=== PATIENT | male | born 1965 | race Caucasian/White ===

== ENCOUNTER 2020-07-17 07:04 | Emergency (ER) | payer MEDICAID ==
[~2020-07-17] VITALS: Ht 172.7 cm; Wt 108.9 kg
[~2020-07-17 07:04] MED LIST: BUM1 PO; CLEOCIN HCL300 MG PO; COR3 PO; COUMADIN2.5 MG PO; ECO81 PO; ELIQUIS5 MG PO; L40 PO; L40I IV; L40I PO; LASIX40 MG PO; LEVAQUIN500 M1 PO; LIPI10 PO; ZES5 PO
[2020-07-17 07:08] VITALS: Ht 172.7 cm; Wt 108.9 kg
[2020-07-17 08:36] LABS: BASOPHIL % 0.4 % (0-2); PLATELET COUNT 209 x10^3mcL (130-400); RED CELL DISTRIBUTION WIDTH 16.3 % (11.5-14.5)
[2020-07-17 08:38] LABS: CALCIUM 8.9 mg/dL (8.5-10.1); CARBON DIOXIDE 28.6 mmol/L (21-32); CHLORIDE SERUM 103 mmol/L (98-107); GFR1 > 60 mL/min; GLUCOSE SERUM 129 mg/dL (74-106); POTASSIUM SERUM 3.5 mmol/L (3.5-5.1); SODIUM SERUM 139 mmol/L (136-145)
[2020-07-17 08:42] LABS: ALKALINE PHOSPHATASE 121 U/L (46-116); ALT/SGPT 33 U/L (16-63); AST/SGOT 32 U/L (15-37); BILIRUBIN TOTAL 1.64 mg/dL (0.20-1.00); LIPASE 109 IU/L (73-393); TRIGLYCERIDES 56 mg/dL (<150)
[2020-07-17 08:48] LABS: ALBUMIN 3.2 g/dL (3.4-5.0); CHOLESTEROL 87 mg/dL (<200); CHOLESTEROL/HDL RATIO 3.5; HDL CHOLESTEROL 25 mg/dL (40-60)
[2020-07-17 09:33] LABS: T3 TOTAL 1.51 ng/mL
[2020-07-17 11:07] LABS: FREE THYROXINE INDEX 4.3 ug/dL (1.4-4.5); T4(THYROXINE) 11.4 ug/dL (4.7-13.3)
[2020-07-17 11:26] LABS: FREE T4 2.17 ng/dL (0.76-1.46)
[2020-07-17 12:06] VITALS: BP 114/87
== END 2020-07-17 12:06 | disposition home or self-care (01) ==
LOC: ED 07:04
PROVIDERS: Specialist
DX: S01.01XA Laceration without foreign body of scalp, initial encounter (principal); U07.1 COVID-19; J90 Pleural effusion, not elsewhere classified; I50.9 Heart failure, unspecified; F17.210 Nicotine dependence, cigarettes, uncomplicated; F15.90 Other stimulant use, unspecified, uncomplicated; F12.90 Cannabis use, unspecified, uncomplicated; W19.XXXA Unspecified fall, initial encounter; Y93.89 Activity, other specified; Y99.8 Other external cause status; Y92.89 Other specified places as the place of occurrence of the external cause
CPT/HCPCS: 83880; 84439; 90715; G0480; J0456; J0696; J7050; Q0092

== ENCOUNTER 2020-07-24 05:58 | Emergency (ER) | payer MEDICAID ==
[~2020-07-24] VITALS: Ht 175.3 cm; Wt 107.3 kg
[2020-07-24 08:05] VITALS: BP 138/70
== END 2020-07-24 08:05 | disposition home or self-care (01) ==
LOC: ED 05:58
DX: S01.91XD Laceration without foreign body of unspecified part of head, subsequent encounter (principal); I50.9 Heart failure, unspecified; F17.210 Nicotine dependence, cigarettes, uncomplicated; G44.209 Tension-type headache, unspecified, not intractable; Z76.0 Encounter for issue of repeat prescription; X58.XXXD Exposure to other specified factors, subsequent encounter
CPT/HCPCS: Q0092

== ENCOUNTER 2020-10-05 03:14 | Inpatient (IN) | payer MEDICAID, SELFPAY ==
[~2020-10-05] VITALS: Ht 177.8 cm; Wt 109.8 kg
[2020-10-05 03:16] VITALS: Ht 177.8 cm; Wt 109.8 kg
--- NOTE | 2020-10-05 04:38 | NUR ---
PATIENT WHEELED TO ROOM BY EMT YENNY AND BRANDT LUNSFORD.
--- NOTE | 2020-10-05 04:46 | NUR ---
PT PRESENTS TO ED WITH C/C OF COUGH AND WEAKNESS X4 DAYS. PT REPORTS FEVERS, REPORTS FEELING "BAD ALL OVER MY BODY". PT REPORTS NAUSEA "WHENEVER I DO ANY ACTIVITY." PT NOTED TO HAVE DRY, NON-PRODUCTIVE COUGH DURING ASSESSMENT. PT REPORTS HX OF CHF, JVD NOTED TO R SIDE OF NECK. PT DENIES ANY VOMITTING, DENIES DIARRHEA AND CONSTIPATION. PT DENIES ANY OTHER RELATED OR ABNORMAL SYMPTOMS. PT PLACED IN GOWN, ON FULL SCIENCE MANAGER AND PULSE OX, CALL LIGHT IN REACH. AWAITING MSE.
--- NOTE | 2020-10-05 05:23 | NUR ---
PT REPORTS HE WAS COVID + ON OCT .
[2020-10-05 05:31] LABS: PLATELET COUNT 254 x10^3mcL (130-400)
[2020-10-05 05:34] LABS: RED CELL DISTRIBUTION WIDTH 17.3 % (11.5-14.5)
[2020-10-05 05:42] LABS: CALCIUM 8.6 mg/dL (8.5-10.1); CARBON DIOXIDE 24.7 mmol/L (21-32); CHLORIDE SERUM 104 mmol/L (98-107); GFR1 > 60 mL/min; GLUCOSE SERUM 128 mg/dL (74-106); POTASSIUM SERUM 3.8 mmol/L (3.5-5.1); SODIUM SERUM 136 mmol/L (136-145)
[2020-10-05 05:47] LABS: ALKALINE PHOSPHATASE 109 U/L (46-116); ALT/SGPT 34 U/L (16-63); AST/SGOT 26 U/L (15-37); BILIRUBIN TOTAL 0.92 mg/dL (0.20-1.00); TOTAL PROTEIN, SERUM 6.8 g/dL (6.4-8.2)
[2020-10-05 05:48] LABS: ALBUMIN 3.2 g/dL (3.4-5.0)
--- NOTE | 2020-10-05 06:01 | NUR ---
PT RESTING IN [facility], EKG COMPLETED BY EMT YENNY, CALL LIGHT IN REACH. PT AA&OX4.
[2020-10-05 06:12] LABS: BAND NEUTROPHIL 3 % (0-10); MONOCYTE 10 % (0-7); SEGMENTED NEUTROPHILS 70 % (37-75); rbc morphology (normal/abnorm) NORMAL (NORMAL)
--- NOTE | 2020-10-05 06:38 | NUR ---
PT RESTING IN [facility]URNEY, PROVIDED WITH WARM BLANKET, SPEAKING IN FULL CLEAR SENTENCES, AA&OX4, RESP E/U, NAD NOTED AT THIS TIME. CALL LIGHT IN REACH.
--- NOTE | 2020-10-05 07:24 | NUR ---
REPORT GIVEN TO KISHA LUNSFORD TO ASSUME CARE OF PT.
--- NOTE | 2020-10-05 07:45 | NUR ---
PT OOB AMBULATORY TO BATHROOM PER PTS REQUEST. PT IN NO DISTRESS
--- NOTE | 2020-10-05 08:09 | NUR ---
PT MEDICATED WITH LASIX PER MD ORDERS SEE EMAR. PT SITTING AT EDGE OF BED PER PTS REQUEST THIS IS MOST COMFORTABLE.
--- NOTE | 2020-10-05 09:00 | NUR ---
PT IN BED NO DISTRESS NO FURTHER ORDERS AT THIS TIME. AWAITING BED FOR ADMIT
[2020-10-05 09:26] LABS: CALCIUM 8.7 mg/dL (8.5-10.1); CARBON DIOXIDE 24.7 mmol/L (21-32); CHLORIDE SERUM 103 mmol/L (98-107); GFR1 > 60 mL/min; GLUCOSE SERUM 170 mg/dL (74-106); POTASSIUM SERUM 3.6 mmol/L (3.5-5.1); SODIUM SERUM 138 mmol/L (136-145)
--- NOTE | 2020-10-05 10:04 | NUR ---
PT SLEEPING AROUSABLE, VSS, WILL CONTINUE TO MONITOR
--- NOTE | 2020-10-05 11:09 | NUR ---
PT SLEEPING BUT AROUSABLE ON CALLING ADVISED I WILL MEDICATE HIM WITH PROTONIX,VIT B1 AND FOLIC ACID PER ADMIT ORDERS. PT VERBALIZED UNDERSTANDING AND CONSENTED. PT IN NO DISTRESS ON FULL VSS, IV SITE PATENT FLUSHED WITH 10CC NS WITH NO PROBLEM. WILL CONTINUE TO MONITOR. AWAITING BED AVAILABILITY FOR TELE FLOOR
--- NOTE | 2020-10-05 11:09 | NUR ---
PT MEDICATED PER MD ORDERS SEE EMAR.
--- NOTE | 2020-10-05 12:10 | NUR ---
PT RESTING NO COMPLAINTS ALL NEEDS MET. NO FURTHER ORDERS AT THIS TIME. ON FULL CM NSR VSS WILL CONTINUE TO MONITOR
--- NOTE | 2020-10-05 12:35 | NUR ---
PT SLEEPING LUNCH TRAY PLACED IN ROOM. PT AROUSABLE MADE AWARE. NO FURTHER ORDERS AT THIS TIME. WILL MONITOR.
--- NOTE | 2020-10-05 13:08 | NUR ---
REPORT GIVEN TO ARABELLA LUNSFORD RESUMING CARE OF PT AT THIS TIME
--- NOTE | 2020-10-05 13:18 | NUR ---
REPORT RECEIVED FROM KISHA LUNSFORD
--- NOTE | 2020-10-05 15:20 | NUR ---
PT CHANGED INTO GOWN AND ASSESSED SKIN. PT NOTED WITH BLANCHEABLE REDNESS TO RIGHT BUTTOCK. PT STATES "MY BUTT IS ALWAYS RED SINCE THE SLAPPED MY BUTT WHEN I WAS BORN." PT A&XO4NO ACUTE DISTRES NOTED, CONTINUES TO MAKE JOKES WITH STAFF. NOT OTHER WOUNDS OR ABNORMAL SKIN NOTED AT THIS TIME.
--- NOTE | 2020-10-05 16:13 | NUR ---
REPORT GIVEN TO RENAY. AURELIO ISAAC AND JACKIE LUNSFORD TRANSFERRING PT VIA [facility]
--- NOTE | 2020-10-05 17:12 | NUR ---
REC'D PT FROM ED VIA [facility] ACCOMPANIED BY RN. PT ADM WITH CC OF SOB WITH COUGH AND BLE SWELLING. AAOX4, SPEECH CLEAR, FOLLOWS COMMANDS. TELE 27. DENIES CP, DIZZINESS, OR PALPIATIONS. REPORTS MILD SOB. BREATHING EVEN/UNLABORED ON RA, SPO2 100%. C/O PRODUCTIVE COUGH, UNKNOWN COLOR OF SPUTUM. ABD SOFT/DISTENDED. VOIDING FREELY. GEN WEAKNESS. AMB BY SELF WITH STEADY GAIT. BLE SWELLING 2+. IV TO RFA, SITE WNL. ORIENTED TO DEVICES AND SURROUNDINGS. CALL LIGHT WITHIN REACH, BED AT LOWEST POSITION. WILL CONTINUE TO MONITOR.
[2020-10-05 17:22] VITALS: BP 140/83
--- NOTE | 2020-10-05 17:52 | NUR ---
CALLED [facility] AND NOTIFIED OF A1C 6.6 AND NO AM LABS. REC'D ORDER FOR DM PROTOCOL AND AM LABS.
--- NOTE | 2020-10-05 20:30 | NUR ---
RECEIVED AWAKE, ALERT, ORIENTED X3, BREATH SOUNDS DIMINISHED. ON ROOM AIR WITH O2 SAT 97%. NON PRODUCTIVE COUGH NOTED. BLE REDDENED AND SWOLLEN. TEMP 101.3 TYLENOL 650MG PO GIVEN. PLAN OF CARE NOTED AND IMPLEMENTED, ALL NEEDS ATTENDED, WILL CONTINUE TO MONITOR.
[2020-10-05 20:53] VITALS: BP 131/77
--- NOTE | 2020-10-06 | NUR ---
ASLEEP IN BED, VSS, NO ACUTE DISTRESS NOTED, WILL CONTINUE TO MONITOR.
[2020-10-06 06:06] VITALS: BP 131/77
--- NOTE | 2020-10-06 07:00 | NUR ---
RESTING IN BED, DENIES ANY PAIN, VSS, NO ACUTE DISTRESS NOTED, WILL CONTINUE TO MONITOR.
[2020-10-06 08:04] LABS: CALCIUM 8.3 mg/dL (8.5-10.1); CARBON DIOXIDE 27.2 mmol/L (21-32); CHLORIDE SERUM 104 mmol/L (98-107); CREATININE SERUM 0.8 mg/dL (0.7-1.3); GFR1 > 60 mL/min; GLUCOSE SERUM 114 mg/dL (74-106); MAGNESIUM 1.9 mg/dL (1.8-2.4); PHOSPHOROUS 3.5 mg/dL (2.5-4.9); POTASSIUM SERUM 3.7 mmol/L (3.5-5.1); SODIUM SERUM 138 mmol/L (136-145)
[2020-10-06 08:36] VITALS: BP 111/66
[2020-10-06 09:06] LABS: BASOPHIL % 0.9 % (0-2); PLATELET COUNT 230 x10^3mcL (130-400)
[2020-10-06 09:30] LABS: RED CELL DISTRIBUTION WIDTH 17.1 % (11.5-14.5)
--- NOTE | 2020-10-06 12:29 | NUR ---
ECHOCARDIOGRAM PENDING-COVID +
[2020-10-06 13:15] VITALS: BP 118/75
[2020-10-06 13:33] LABS: rbc morphology (normal/abnorm) NORMAL (NORMAL)
[2020-10-06 17:00] VITALS: BP 123/76
[2020-10-06 22:00] VITALS: BP 129/69
--- NOTE | 2020-10-07 | NUR ---
@000 NO CALLS MADE; SEEN PT NOT IN RESP DISTRESS; RESTING COMFORTABLY; 02 @ 2LPM VIA NC; KEPT CALL LIGHT IN REACH.
--- NOTE | 2020-10-07 03:40 | NUR ---
@0340 PT HAD 12 BEATS OF V-TACH; CHECKED PT VS BP 97/52, HR 20, KY 82, 02 SAT 98%; DENIES CHESTPAIN; NOT IN RESP DISTRESS; NOTIFIED DR. ANDERSEN NO ORDERS GIVEN.
[2020-10-07 04:16] VITALS: BP 97/52
[2020-10-07 07:26] LABS: PLATELET COUNT 204 x10^3mcL (130-400)
[2020-10-07 07:39] LABS: CALCIUM 8.4 mg/dL (8.5-10.1); CARBON DIOXIDE 29.6 mmol/L (21-32); CHLORIDE SERUM 103 mmol/L (98-107); GFR1 > 60 mL/min; GLUCOSE SERUM 114 mg/dL (74-106); SODIUM SERUM 139 mmol/L (136-145)
[2020-10-07 08:13] LABS: RED CELL DISTRIBUTION WIDTH 17.2 % (11.5-14.5)
[2020-10-07 09:10] VITALS: BP 109/72
[2020-10-07 12:27] VITALS: BP 112/64
--- NOTE | 2020-10-07 16:59 | NUR ---
0720 RECEIVED REPORT. PATIENT SLEEPING BUT AROUSABLE. ORIENTED X4. ON ROOM AIR. CALL LIGHT WITHIN REACH ONE TIME DOSE 40MG IV LASIX GIVEN, DAILY DOSE INCREASE.
[2020-10-07 17:24] VITALS: BP 111/57
--- NOTE | 2020-10-07 19:30 | NUR ---
PT. REPORT RECIEVED FROM DAY SHIFT NURSE, PT. RESTING IN BED W/ EYES CLOSED, NO FACIAL DROOP NOTED, RR EVEN AND UNLABORED ON RA, CHEST RISE SYMT, TELE 27 NSR, BED IN LOWEST POSITION, CALL LIGHT WITHIN REACH, SR UPX2, WILL CONT TO MONITOR.
[2020-10-07 21:18] VITALS: BP 106/51
[2020-10-08 05:46] VITALS: BP 101/57
[2020-10-08 07:42] LABS: BASOPHIL % 0.8 % (0-2); PLATELET COUNT 199 x10^3mcL (130-400)
--- NOTE | 2020-10-08 07:43 | NUR ---
RECEIVED AWAKE, ALERT AND ORIENTED. IN NO ACUTE RESP. DISTRESS. VS WNL. NO C/O PAIN OR DISCOMFORT. CALL LIGHT WITHIN REACH. WILL CONTINUE WITH PLAN OF CARE.
[2020-10-08 07:49] LABS: RED CELL DISTRIBUTION WIDTH 16.8 % (11.5-14.5)
[2020-10-08 08:06] LABS: CALCIUM 8.3 mg/dL (8.5-10.1); CARBON DIOXIDE 28.9 mmol/L (21-32); CHLORIDE SERUM 100 mmol/L (98-107); CREATININE SERUM 0.8 mg/dL (0.7-1.3); GFR1 > 60 mL/min; GLUCOSE SERUM 91 mg/dL (74-106); SODIUM SERUM 136 mmol/L (136-145)
[2020-10-08 09:05] VITALS: BP 107/57
[2020-10-08 12:30] VITALS: BP 108/62
--- NOTE | 2020-10-08 15:23 | NUR ---
SITTING AT THE EGDE OF THE BED IN NO ACUTE DISTRESS. ON RA SATS 96%. NO SOB NOTED. NO C/O PAIN OR DISCOMFORT AT THIS TIME. NEW HL INSERTED TO LT HAND AND PATENT.
[2020-10-08 17:06] VITALS: BP 107/65
--- NOTE | 2020-10-08 19:00 | NUR ---
REMAINS ON RA AND O2 SATS 95%. NO SOB NOTED. NO ACUTE RESP. DISTRESS. VS WNL. NEW HL TO RT HAND PATENT. NO C/O PAIN OR DISCOMFORT AT THIS TIME. CALL LIGHT WITHIN REACH.
[2020-10-08 21:00] VITALS: BP 105/59
--- NOTE | 2020-10-08 23:13 | NUR ---
NO DISTRESS NOTED, SITTING UP ON BED EATING SNACKS. NO C/O PAIN OR DISCOMFORT.
--- NOTE | 2020-10-09 00:22 | NUR ---
SLEEPING AT THIS TIME. EU BREATHINGN NOTED ON ROOM AIR. NSR ON TELE. ISOLATION PRECAUTION IN PLACE.
--- NOTE | 2020-10-09 02:10 | NUR ---
RECEIVED PATIENT FROM NURSE MARTINEZ. PATIENT SLEEPING AT THIS TIME, NO ACUTE DISTRESS. EU BREATHING NOTED ON ROOM AIR. TELE IN PLACE, NSR. BED IN LOWEST POSITION. CALL LIGHT WITHIN REACH. SIDE RAILS UP X2.
--- NOTE | 2020-10-09 03:00 | NUR ---
PT RESTING IN NO DISTRESS, NO C/O PAIN OR DISCOMFORT. CALL LIGHT WITHIN REACH. WILL BE ENDORSED TO ANA FOR CONTINUATION OF CARE.
[2020-10-09 05:18] VITALS: BP 108/63
--- NOTE | 2020-10-09 07:30 | NUR ---
RECEIVED REPORT FROM NIGHT NURSE. PATIENT RESTING IN BED, AAO TIMES 4. DENIES PAIN AND DISCOMFORT. RESPIRATIONS EVEN AND UL ON RA, LUNG SOUNDS DIMINISHED AT BASES BIALT. PULSES PALPABLE. BS ACTIVE x4. DENIES N/V/D. AMBULAOTRY. VOIDS FREELY. LH 20G INTACT AND PATENT. BED IN LOWEST POSITION, CALL LIGHT IN REACH, SAFETY MEASURES IN PLACE. WILL CONT TO MONITOR.
[2020-10-09 07:48] LABS: CALCIUM 8.2 mg/dL (8.5-10.1); CARBON DIOXIDE 31.8 mmol/L (21-32); CHLORIDE SERUM 100 mmol/L (98-107); CREATININE SERUM 0.9 mg/dL (0.7-1.3); GFR1 > 60 mL/min; GLUCOSE SERUM 101 mg/dL (74-106); POTASSIUM SERUM 3.8 mmol/L (3.5-5.1); SODIUM SERUM 138 mmol/L (136-145)
[2020-10-09 07:56] LABS: PLATELET COUNT 175 x10^3mcL (130-400)
[2020-10-09 08:07] LABS: RED CELL DISTRIBUTION WIDTH 16.2 % (11.5-14.5)
[2020-10-09 09:05] VITALS: BP 111/56
[2020-10-09] MEDS ORDERED: LIPI10 PO (09:52)
[2020-10-09] MEDS ORDERED: COR3 PO (09:52)
[2020-10-09] MEDS ORDERED: LASIX40 MG PO (09:53)
[2020-10-09] MEDS ORDERED: FOL1 PO (09:54)
[2020-10-09] MEDS ORDERED: THI100 PO (09:54)
[2020-10-09 13:14] VITALS: BP 95/65
[2020-10-09 14:31] VITALS: BP 95/65
[2020-10-09 14:49] LABS: MONOCYTE 17 % (0-7); SEGMENTED NEUTROPHILS 47 % (37-75)
[2020-10-09 14:50] LABS: rbc morphology (normal/abnorm) NORMAL (NORMAL)
--- NOTE | 2020-10-09 16:00 | NUR ---
RECEIVED DISCHARGE ORDERS. IV REMOVED, CATH INTACT. CARDIAC MONITORING DISCONTINUED. DRESSED AND PREPARED FOR DISCHARGE. PRINTED DISCHARGE INSTRUCTIONS GIVEN AND EXPLAINED TO PATIENT. ALL QUESTIONS ANSWERED AT THIS TIME. PATIENT VERBALIZED UNDERSTANDING OF ALL DISCHARGE INSTRUCTIONS/PACKET. HOMELESS WAIVER FORM SIGNED AND PLACED IN CHART. PER ILLUMINATING ENGINEER OTILIA, PATIENT IS TO BE DISCHARGED FROM HOSPITAL AND WILL WALK TO [facility] [address]IENT. PATIENT STATES THAT HE WILL HAVE [facility]. PATIENT SENT HOME WITH ALL BELONGINGS. 1616 PATIENT DISCHARGED AND TAKEN DOWN TO [facility] IN WHEELCHAIR, ACCOMPANIED BY TRUCK STRIKER.
== END 2020-10-09 16:14 | disposition home or self-care (01) | DRG 137 ==
LOC: ED 03:14 → DU 07:37
PROVIDERS: Emergency Medicine; Family Medicine; ADMIT Internal Medicine; ATTEND Internal Medicine
DX: U07.1 COVID-19 (principal); J96.01 Acute respiratory failure with hypoxia; I50.23 Acute on chronic systolic (congestive) heart failure; J15.8 Pneumonia due to other specified bacteria; E44.0 Moderate protein-calorie malnutrition; I11.0 Hypertensive heart disease with heart failure; I42.9 Cardiomyopathy, unspecified; K74.60 Unspecified cirrhosis of liver; F11.10 Opioid abuse, uncomplicated; I25.10 Atherosclerotic heart disease of native coronary artery without angina pectoris; F15.10 Other stimulant abuse, uncomplicated; Z68.34 Body mass index [BMI] 34.0-34.9, adult; Z59.0 Homelessness; I25.2 Old myocardial infarction; Z91.19 Patient's noncompliance with other medical treatment and regimen; Z86.718 Personal history of other venous thrombosis and embolism; Z79.01 Long term (current) use of anticoagulants
CPT/HCPCS: 82962; 83880; C9113; G0378; G0480; J1940; J3535; U0003

== ENCOUNTER 2020-10-19 20:48 | Emergency (ER) | payer MEDICAID ==
[~2020-10-19] VITALS: Ht 177.8 cm; Wt 99.8 kg
[~2020-10-19 20:48] MED LIST changes: +FOL1 PO; +THI100 PO
[2020-10-19 20:50] VITALS: BP 139/86; Ht 177.8 cm; Wt 99.8 kg
== END 2020-10-19 21:52 | disposition home or self-care (01) ==
LOC: ED 20:48
DX: E78.5 Hyperlipidemia, unspecified (principal); I11.0 Hypertensive heart disease with heart failure; I50.9 Heart failure, unspecified